=== PATIENT | female | born 1930 | race Caucasian/White ===

== ENCOUNTER 2018-06-26 06:33 | Observation (INO) | payer MEDICARE, BC ==
[~2018-06-26] VITALS: Wt 59.4 kg
[~2018-06-26 06:33] MED LIST: ARICEPT 5MG; ARICEPT10 MG PO; ASPIRIN 32325 MG/TAB PO; ASPIRIN E.C. 8181 MG PO; FOSAMAX 70MG TA70 MG PO; FOSAMAX5 MG; LIPITOR20 MG PO; MIRAPEX 0.0.125 MG/T PO; NORCO 325 MG-51 TAB PO; PLAVIX 75MG TAB75 MG PO; PRINIVIL10 MG PO; TYLENOL ARTHRI650 M1 PO; ZOCOR 20MG20 MG PO
[2018-06-26] MEDS ORDERED: ASPIRIN 81M81 MG/TA2 PO (06:46)
[2018-06-26 06:54] LABS: BASO % 0.2 % (0.0-2.0); EOS # 0.2 (0.0-0.7); GRAN # 4.5 (1.4-6.5); GRAN % 52.4 % (42.2-75.2); HEMATOCRIT 36.6 % (37.0-47.0); HEMOGLOBIN 11.5 g/dl (12.5-16.0); LYMPH # 3.1 (1.2-3.4); LYMPH % 36.4 % (20.0-51.0); MEAN CELL VOLUME 85 fl (80.0-100.0); MEAN CORPUSCULAR HEMOGLOBIN 27 pg (27.0-31.0); MEAN CORPUSCULAR HGB CONC 31 g/dl (33.0-37.0); MEAN PLATELET VOLUME 11.9 fl (7.4-10.4); MONO # 0.7 (0.1-0.6); MONO % 8.6 % (1.7-9.3); PLATELET COUNT 245 K/mm3 (130-400); RED BLOOD COUNT 4.32 M/mm3 (4.10-5.30); REDCELL DISTRIBUTION WIDTH-CV 15.2 % (11.5-14.5)
[2018-06-26 07:00] LABS: INR 1.1 (0.8-3.0); PROTHROMBIN TIME 12.7 SECONDS (9.7-12.8)
[2018-06-26 07:05] LABS: ALBUMIN 3.8 gm/dL (3.5-5.0); BILIRUBIN,TOTAL 0.4 mg/dL (0.0-1.0); CALCIUM 9.2 mg/dL (8.4-10.2); CREATININE, serum 0.82 mg/dL (0.52-1.25); POTASSIUM 3.4 mmol/L (3.4-5.0); TOTAL PROTEIN 6.7 gm/dL (6.4-8.2)
[2018-06-26 07:22] LABS: PROLACTIN 52.8 ng/mL (3.0-18.6)
[2018-06-26 08:42] LABS: COLLECTION METHOD CATHETER
[2018-06-26 08:49] LABS: MUCOUS Present /lpf; PH 6 (5-8); SQUAMOUS EPITHELIAL 0-2 /hpf; URINE APPEARANCE Clear; URINE BACTERIA None Seen /hpf; URINE BILIRUBIN Negative (NEGATIVE); URINE BLOOD Negative (NEGATIVE); URINE COLOR Yellow; URINE GLUCOSE Negative (NEGATIVE); URINE KETONE Negative (NEGATIVE); URINE LEUKOCYTE ESTERASE Negative (NEGATIVE); URINE NITRATE Negative (NEGATIVE); URINE PROTEIN(semi-quant) Negative (NEGATIVE); URINE RBC 0-2 /hpf; URINE UROBILINOGEN Negative (NEGATIVE)
--- NOTE | 2018-06-26 10:30 | NUR ---
arrived on unit per WC from emergency department, assisted into bed, son at bedside and admission assessment completed, patient is alert but is disoriented to time an day, is oriented to herself but unable to remember her birthday, fall risk intervention started
[2018-06-26] MEDS ORDERED: TYLENOL 500MG500 MG PO (10:52)
--- NOTE | 2018-06-26 11:21 | NUR ---
continues to try and get out of bed and bed alarm sounds, has now pulled out her INT to left antecubital, offered jello and banana and has agree to have this
[2018-06-26 11:22] VITALS: BP 147/63; PULSE 74; TEMP 98.3
--- NOTE | 2018-06-26 11:34 | NUR ---
spoke with Dr Muñoz and will wait until son returns to restart her INT
--- NOTE | 2018-06-26 12:05 | NUR ---
has been sitting up in bed and eating jello and banan but continues to try to get up frquently, son has returned and is now at bedside
--- NOTE | 2018-06-26 13:03 | NUR ---
son remains at bedside visiting with her, Dr Al in to see patient
--- NOTE | 2018-06-26 13:13 | NUR ---
appears to be sleeping, did have part of her jello and giselean, son remains at bedside
--- NOTE | 2018-06-26 14:28 | NUR ---
continues to appear to sleep, in bed with lights off, eyes closed, resp quiet and easy,
--- NOTE | 2018-06-26 14:33 | NUR ---
awake now and son out asking if he can having something to eat, instructed on ordering regular food, verbalizes understanding
--- NOTE | 2018-06-26 15:30 | NUR ---
sitting up in bed eating chicken breast and broccoli, tolerates well, son remains at bedside
--- NOTE | 2018-06-26 16:26 | NUR ---
bed alarm sounding, entered room and son assisting her out of bed and into bathroom, was incontinent of urine as she was ambulating into bathroom, will assist with incontinent care
[2018-06-26 16:59] VITALS: BP 150/82; PULSE 71; TEMP 97.9
--- NOTE | 2018-06-26 17:47 | NUR ---
awake resting in bed, son attempting to order her supper but she is very indecisisve, INT started
--- NOTE | 2018-06-26 18:46 | NUR ---
bedside shift report given to DUNG Schaeffer
--- NOTE | 2018-06-26 20:05 | NUR ---
Pt resting in bed. Son not present at this time. Pt confused/ disoriented and has removed all telemetry leads and the box. Pt reoriented. Neuro check otherwise WNL. No deficits noted. Respirations even and unlabored. Lungs clear. BS+. Denies pain. Bed alarm armed. Seizure precautions. Will continue to monitor.
[2018-06-26 20:36] VITALS: BP 138/51; PULSE 78; TEMP 98.2
[2018-06-26 23:25] VITALS: BP 133/51; PULSE 80; TEMP 98.7
[2018-06-27 04:12] VITALS: BP 147/66; PULSE 74; TEMP 97.5
--- NOTE | 2018-06-27 06:37 | NUR ---
Pt at baseline level of confusion this AM. No other neurological deficits noted. No seizure activity through the night.
[2018-06-27 06:54] LABS: BASO % 0.3 % (0.0-2.0); EOS # 0.1 (0.0-0.7); EOS % 1.8 % (0-4.0); GRAN # 3.7 (1.4-6.5); HEMOGLOBIN 10.7 g/dl (12.5-16.0); LYMPH # 2.2 (1.2-3.4); LYMPH % 32.7 % (20.0-51.0); MEAN CELL VOLUME 85 fl (80.0-100.0); MEAN CORPUSCULAR HEMOGLOBIN 26 pg (27.0-31.0); MEAN CORPUSCULAR HGB CONC 31 g/dl (33.0-37.0); MEAN PLATELET VOLUME 12.1 fl (7.4-10.4); MONO # 0.6 (0.1-0.6); PLATELET COUNT 222 K/mm3 (130-400); RED BLOOD COUNT 4.11 M/mm3 (4.10-5.30); REDCELL DISTRIBUTION WIDTH-CV 15.3 % (11.5-14.5)
[2018-06-27 07:01] LABS: HEMATOCRIT 34.8 % (37.0-47.0)
[2018-06-27 07:10] LABS: CALCIUM 8.9 mg/dL (8.4-10.2); CREATININE, serum 0.73 mg/dL (0.52-1.25); MAGNESIUM 1.8 mg/dL (1.6-2.3); PHOSPHOROUS 3.4 mg/dL (2.5-4.5); POTASSIUM 3.6 mmol/L (3.4-5.0)
[2018-06-27 07:36] VITALS: BP 131/79; PULSE 65; TEMP 98.6
--- NOTE | 2018-06-27 09:30 | NUR ---
Patient sitting up in chair visiting with DUNG Gaona. Chair alarm placed under patient for patients saftey as son is gone at this time. Patient is alert and oriented to self and date of . Denies any pain/discomfort. Skin w/d. Color pale pink. Lungs CTA with resp even/unlabored. HR strong/regular. Abd soft with bowel sound x 4 quads. PPP. No pedal edema noted. Patient very confused and wants to go home. She is not understanding of why she has to stay here.
--- NOTE | 2018-06-27 10:30 | NUR ---
Patient has been refusing to leave telemtry on this AM. With encouragement she will let this nurse place but then takes it back off. him tech and made aware patients refusal to leave telemetry on.
[2018-06-27 11:05] VITALS: BP 152/63; PULSE 67; TEMP 97.8
--- NOTE | 2018-06-27 13:45 | NUR ---
Patient's son at desk inquiring about time of patients procedure. Rosie, Receiving Manager called to check on time. Son made aware of time of procedure to be at 1500
--- NOTE | 2018-06-27 14:30 | NUR ---
Patient's son attempting to walk mother out to the elevator with just her gown on and IV still intact at this time. When stopped; son notable upset and states that he is taking his mother to [facility] and wants to know why she had not had EEG yet at this time. Explained to son that the tech had just called and will be here soon to perform test on the patient. He verbalizes they better be or that they will be leaving.
--- NOTE | 2018-06-27 14:40 | NUR ---
Saira, RT here to the floor to perform EEG on patient at this time.
[2018-06-27] MEDS ORDERED: KEPPRA250 MG PO (15:25)
[2018-06-27 15:34] VITALS: BP 140/48; PULSE 64; TEMP 97.9
--- NOTE | 2018-06-27 15:54 | NUR ---
YAS met with patient and patient's son about discharge plans. Patient will be discharging today. Patient's PCP is Dr August and she denies issues with filling prescriptions. Patient uses a walker for ambulation when needed but no other DME is reported. Patient also does not use any home health services. Patient does not have DPOA and is unable to sign one at this time. No discharge needs.
--- NOTE | 2018-06-27 17:02 | NUR ---
Patient discharge to home at this time with son. Review of discharge instructions given to son. Verbalizes understanding. New script sent to [facility] per pharmacy preference. INT removed from right forearm with cannula intact. Patient dressed by son. Discharged to home at this time
== END 2018-06-27 16:50 | disposition home or self-care (01) ==
LOC: COL.ER 06:33 → MEDICAL 08:01
PROVIDERS: Emergency Medicine; ADMIT Hospitalist
DX: R56.9 Unspecified convulsions (principal); I10 Essential (primary) hypertension; R73.9 Hyperglycemia, unspecified; G30.9 Alzheimer's disease, unspecified; F02.80 Dementia in other diseases classified elsewhere, unspecified severity, without behavioral disturbance, psychotic disturbance, mood disturbance, and anxiety; E78.5 Hyperlipidemia, unspecified; G25.81 Restless legs syndrome; Z86.73 Personal history of transient ischemic attack (TIA), and cerebral infarction without residual deficits; Z79.02 Long term (current) use of antithrombotics/antiplatelets; Z79.82 Long term (current) use of aspirin; M81.0 Age-related osteoporosis without current pathological fracture; R15.9 Full incontinence of feces; R32 Unspecified urinary incontinence; M19.90 Unspecified osteoarthritis, unspecified site
CPT/HCPCS: G0378; J1644; J1953; J7030

== ENCOUNTER 2018-08-21 14:07 | Outpatient (CLI) | payer MEDICARE, BC ==
[~2018-08-21] VITALS: Ht 162.6 cm; Wt 60.5 kg
[~2018-08-21 14:07] MED LIST changes: +ASPIRIN 81M81 MG/TA2 PO; +KEPPRA250 MG PO; +TYLENOL 500MG500 MG PO
[2018-08-21] MEDS ORDERED: PRINIVIL10 MG PO (15:54)
[2018-08-21] MEDS ORDERED: PLAVIX 75MG TAB75 MG PO (15:55)
[2018-08-21] MEDS ORDERED: KEPPRA250 MG PO (15:55)
[2018-08-21 16:27] VITALS: BP 136/62; PULSE 62; TEMP 97.4
== END 2018-08-21 16:00 | disposition home or self-care (01) ==
LOC: EUO 14:07
DX: M81.0 Age-related osteoporosis without current pathological fracture (principal); Z79.899 Other long term (current) drug therapy
CPT/HCPCS: J3489

== ENCOUNTER 2019-08-29 10:57 | Outpatient (CLI) | payer MEDICARE, BC ==
[~2019-08-29] VITALS: Ht 160 cm; Wt 54.0 kg
[~2019-08-29 10:57] MED LIST changes: +B-121000 MCG PO
[2019-08-29 11:21] VITALS: BP 116/67; PULSE 94; TEMP 98.5
== END 2019-08-29 11:51 | disposition home or self-care (01) ==
LOC: EUO 10:57
DX: M81.0 Age-related osteoporosis without current pathological fracture (principal)
CPT/HCPCS: J0897

== ENCOUNTER 2020-03-09 16:24 | Outpatient (CLI) | payer MEDICARE, BC ==
[~2020-03-09] VITALS: Ht 160 cm; Wt 54.5 kg
[2020-03-09] MEDS ORDERED: VITAMIN B12 781 TAB PO (16:34)
[2020-03-09 16:39] VITALS: BP 151/60; PULSE 125; TEMP 97.4
== END 2020-03-09 16:50 | disposition home or self-care (01) ==
LOC: EUO 16:24
DX: M81.0 Age-related osteoporosis without current pathological fracture (principal)
CPT/HCPCS: J0897

== ENCOUNTER 2020-03-10 12:16 | Inpatient (IN) | payer MEDICARE, BC ==
[~2020-03-10] VITALS: Wt 52.1 kg
[~2020-03-10 12:16] MED LIST changes: +VITAMIN B12 781 TAB PO
[2020-03-10 12:54] LABS: BASO % 0.2 % (0.0-2.0); EOS # 0.2 (0.0-0.7); GRAN # 7.9 (1.4-6.5); GRAN % 66.4 % (42.2-75.2); HEMOGLOBIN 10.1 g/dl (12.5-16.0); LYMPH # 2.3 (1.2-3.4); MEAN CELL VOLUME 83 fl (80.0-100.0); MEAN CORPUSCULAR HEMOGLOBIN 25 pg (27.0-31.0); MEAN CORPUSCULAR HGB CONC 31 g/dl (33.0-37.0); MEAN PLATELET VOLUME 11.4 fl (7.4-10.4); MONO # 1.4 (0.1-0.6); PLATELET COUNT 383 K/mm3 (130-400); RED BLOOD COUNT 3.98 M/mm3 (4.10-5.30); REDCELL DISTRIBUTION WIDTH-CV 13.9 % (11.5-14.5)
[2020-03-10 12:58] LABS: HEMATOCRIT 32.9 % (37.0-47.0)
[2020-03-10 13:02] LABS: ARTERIAL BLD GAS O2 SATURATION 96.1 % (92-100); ARTERIAL BLOOD GAS HCO3 26.8 meq/L (22-26); ARTERIAL BLOOD GAS PO2 79.5 mmHg (80-100); ARTERIAL BLOOD GAS pH 7.47 (7.35-7.45)
[2020-03-10 13:06] LABS: ALBUMIN 3.5 gm/dL (3.5-5.0); BILIRUBIN,TOTAL 0.4 mg/dL (0.0-1.0); CALCIUM 9.4 mg/dL (8.4-10.2); CREATININE, serum 0.77 (0.52-1.25); TOTAL PROTEIN 6.8 gm/dL (6.4-8.2)
[2020-03-10 13:34] LABS: COLLECTION METHOD CLEAN CATCH
[2020-03-10 14:14] LABS: MUCOUS Present /lpf; PH 6 (5-8); URINE APPEARANCE Hazy; URINE BACTERIA Occasional /hpf; URINE BILIRUBIN Negative (NEGATIVE); URINE BLOOD 1+ (NEGATIVE); URINE COLOR Yellow; URINE GLUCOSE Negative (NEGATIVE); URINE KETONE Negative (NEGATIVE); URINE LEUKOCYTE ESTERASE 2+ (NEGATIVE); URINE NITRATE Negative (NEGATIVE); URINE PROTEIN(semi-quant) Negative (NEGATIVE); URINE UROBILINOGEN Negative (NEGATIVE)
--- NOTE | 2020-03-10 16:50 | NUR ---
PT ARRIVED TO FLOOR, SON TROY IN ROOM ABLE TO GO OVER 5PAGE AND MED REC WITH HIM. UNABLE TO OBTAIN SUICIDE ASSESSMENT PT IS NOT RESPONSIVE ALL THE TIME. PT WILL ANSWER WITH NODS AND OCCASIONAL YES OR NO ANSWERS. PT HAS MULTIPLE WOUNDS TO BOTTOM AND SON REPORTS SHE DOES NOT TURN ON HER OWN. PT HIGH FALL RISK ACCORDING TO SCALE, BUT BED BOUND, DOES NOT GET UP. PT HAS BEEN SLEEPING MORE THAN USUAL, SON HAS SEEN MENTAL DECLINE OVER PAST YEAR. PT LIVES WITH SON AT HOME. SON REPORTS BEING OPEN TO HOME HEALTH. FLUIDS HUNG, MEDS GIVEN. PT TAKES UP TO 4 PILLS AT A TIME WITH WATER.
[2020-03-10 19:12] VITALS: BP 121/54; PULSE 112; TEMP 99.1
[2020-03-10 19:13] VITALS: BP 121/54; PULSE 112; TEMP 99.1
--- NOTE | 2020-03-10 20:45 | NUR ---
Received report from DUNG Danielle. Pt sleeping upon entry, wakes to voice and touch. Pt able to occasionally respond to voice and commands. Unable to state last name, , date and situation. NAD. Meds administered one at a time with apple sauce. Pt drinks water with straw on command. IVF to RAC, intact, dressing CDI. Pt incontinent of BB, pt had medium soft brown BM, pt cleaned and changed. Skin abrasion/ulcer observed to left buttocks, no drainage, mepilex placed, arpan area reddended, barrier cream applied. Pt repositioned in bed. Rt heel with scant drainage and deep tissue injury, heel foam applied. Left heel with deep tissue injury. Heel pillows applied to bilateral heels. Legs elevated on pillow. Will monitor. Bed alarm set.
[2020-03-10 23:58] VITALS: BP 109/54; PULSE 75; TEMP 98.7
[2020-03-11] VITALS (7 sets, daily range): BP systolic 98–157; BP diastolic 38–75; PULSE 79–97; TEMP 97.9–98.6
--- NOTE | 2020-03-11 05:51 | NUR ---
Pt slept through the night. Pt cleaned and changed, barrier cream applied repositioned in bed. Heel pillows placed to bilateral heels.
--- NOTE | 2020-03-11 06:41 | NUR ---
Report given to DUNG Danielle.
--- NOTE | 2020-03-11 08:50 | NUR ---
PUREWICC PLACED FOR PT INCONTINENCE. BRIEF AND TROY CHANGED, PERICARE PROVIDED, PT READJUSTED IN BED, PT COULD ANSWER YES OR NO QUESTIONS, PT ATE VERY LITTLE OF BREAKFAST, PT DOES NOT MOVE BLE, VERY STIFF AND HARD TO MOVE. L MANAGEMENT SUPERVISOR WEAKER THAN R MANAGEMENT SUPERVISOR. PT FLUIDS TURNED DOWN. PT DID NOT KNOW WHERE SHE WAS, OPENS EYES TO SPEECH, NO OTHER NEEDS AT THIS TIME. SON IN ROOM VISITING.
--- NOTE | 2020-03-11 10:08 | NUR ---
YAS met with the patient and her son, Elpidio (ph#[phone]), to discuss discharge plan. The patient was resting during intake and has dementia at baseline. The patient lives in [place] with Elpidio. Elpidio reports that the patient needs assistance with ADLs and bathing. He states that he helps her with her ADLs and they do sponge baths. The patient has a cane, walker, and wheelchair; but Elpidio states that the patient is wheelchair bound. The patient's PCP is Dr. Nella August and she receives her medications from [facility]. Elpidio reports no difficulties obtaining her meds. Elpidio states that the patient does not have a DPOA-HC. The patient is not . Elpidio states that the patient has four children: Him, Ashley Canales ([place]), Parker Hamida ([place]), and Loretta. Loretta does not live around here. Elpidio states that him and his siblings all keep in contact with one another. Elpidio reports that the plan is for the patient to return back home with him upon discharge. YAS discussed home argelia services and their benefits. Elpidio reports that they are not interested in home health at this time and he does not feel like they need it. SW to continue to follow.
--- NOTE | 2020-03-11 10:11 | NUR ---
Initial visit; Patient appeared unable to respond. Meaghan's son was receptive to [employer] keeping both him and his mother in [employer]a prayers.
--- NOTE | 2020-03-11 12:04 | NUR ---
CARLO SA SETHI NOTIFIED OF LOW BP'S.
[2020-03-11] MEDS ORDERED: ZOHYDRO ER10 MG PO ×2 (12:19)
--- NOTE | 2020-03-11 13:04 | NUR ---
PT REPORTS FEELING LIGHT HEADED BUT PRESSURE CAME UP TO 118/60.
--- NOTE | 2020-03-11 17:17 | NUR ---
PT RESPONSIVE TO NAME, ALERT TO PERSON BUT NOT PLACE OR TIME. PT WOULD NOT RAISE HER ARMS OR MOVE HER LEGS A COMMAND, BUT WOULD MOVE THEM INDEPENDENTLY, PT DID NOT EAT LUNCH, PUREWICC DRAINING WELL, NEURO CHECKS STABLE, NO OTHER NEEDS.
--- NOTE | 2020-03-11 19:17 | NUR ---
Bedside shift report received from DUNG Danielle. Pt sitting up in bed with eyes closed, states she is comfortable. Denies any pain at this time. Will monitor pt.
--- NOTE | 2020-03-11 21:32 | NUR ---
Pt resting in bed with eyes closed. Wakes to voice. States no pain. Meds adminsitered one at a time with applesauce. IVF infusing to RAC, intact, dressing to IV site changed and wrapped with coban. Purewick intact connected to suction. Heel pillows in place to bilateral heels. BLE elevated, pillow placed between knees. made pt comfortable in bed. Will monitor. Bed alarm set. Call light within reach.
[2020-03-12] VITALS (7 sets, daily range): BP systolic 120–158; BP diastolic 32–72; PULSE 82–100; TEMP 98.1–98.9
--- NOTE | 2020-03-12 04:47 | NUR ---
Purewick changed. pt cleaned and changed, repositioned in bed. made pt comfortable. bed alarm set.
--- NOTE | 2020-03-12 06:45 | NUR ---
Pt assessment completed, pt is alert and oriented x3. Skin issues to include a scab on the right hip, excoriation along the right buttock, and deep tissue injury on each heel. The pt's right heel is oozing. Pt did drink some water, and has no other complaints. No further concerns at this time.
[2020-03-12 07:11] LABS: BASO % 0.3 % (0.0-2.0); EOS # 0.2 (0.0-0.7); GRAN # 4.7 (1.4-6.5); GRAN % 63.2 % (42.2-75.2); LYMPH # 1.7 (1.2-3.4); LYMPH % 23.1 % (20.0-51.0); MEAN CELL VOLUME 85 fl (80.0-100.0); MEAN CORPUSCULAR HGB CONC 30 g/dl (33.0-37.0); MEAN PLATELET VOLUME 11.4 fl (7.4-10.4); MONO # 0.7 (0.1-0.6); MONO % 9.9 % (1.7-9.3); PLATELET COUNT 336 K/mm3 (130-400); RED BLOOD COUNT 3.53 M/mm3 (4.10-5.30)
[2020-03-12 07:15] LABS: HEMATOCRIT 29.9 % (37.0-47.0); HEMOGLOBIN 9.1 g/dl (12.5-16.0); MEAN CORPUSCULAR HEMOGLOBIN 26 pg (27.0-31.0)
--- NOTE | 2020-03-12 07:24 | NUR ---
Report given to DUNG Garcia.
[2020-03-12 07:27] LABS: CALCIUM 8.2 mg/dL (8.4-10.2); CREATININE, serum 0.66 (0.52-1.25); POTASSIUM 3.3 mmol/L (3.4-5.0)
--- NOTE | 2020-03-12 13:30 | NUR ---
Primary nurse was assisted with [id number] patient care by [employer] student Toshia Arboleda and [employer] instructor Radha Godoy RN-BC.
--- NOTE | 2020-03-12 18:27 | NUR ---
Pt had uneventful day. Still has purewick external catheter in place. Pt has a significant amount of ulcerations on her coccyx and left buttock. Turned patient q2h today. Heels in heel protectors and right heel has spongy heel protector for oozing fluids. No further concerns at this time.
--- NOTE | 2020-03-12 18:53 | NUR ---
Report given to DUNG Marmolejo.
--- NOTE | 2020-03-13 01:09 | NUR ---
Received report from DUNG Garcia. Alert to self, able to state her first and maiden name, unable to state her birthday, current date and place, pt states she is in [facility]. NAD. Denies any pain or discomfort at this time. Made pt comfortable in bed. Heel pillows in place bilaterally with heel foam protector to right heel, with scant drainage. Purewick intact connected to suction. Mepilex intact to rt buttocks. IVF infusing to RAC, intact, dressing CDI. Meds administered whole with applesauce without issue. Water provided. Bed alarm set. Will monitor.
[2020-03-13 03:57] VITALS: BP 147/65; PULSE 100; TEMP 98.4
--- NOTE | 2020-03-13 04:15 | NUR ---
had BM, pt cleaned, changed and repositioned. Mepilex in place to rt buttcocks. Purewick changed connected to suction. Voices no needs at this time. NAD.
[2020-03-13 06:55] VITALS: BP 145/73; PULSE 85; TEMP 98.1
[2020-03-13 07:16] LABS: BASO % 0.1 % (0.0-2.0); EOS # 0.2 (0.0-0.7); GRAN # 4.9 (1.4-6.5); GRAN % 64.4 % (42.2-75.2); LYMPH # 1.7 (1.2-3.4); LYMPH % 21.9 % (20.0-51.0); MEAN CELL VOLUME 82 fl (80.0-100.0); MEAN CORPUSCULAR HGB CONC 31 g/dl (33.0-37.0); MEAN PLATELET VOLUME 11.3 fl (7.4-10.4); MONO # 0.8 (0.1-0.6); MONO % 10.2 % (1.7-9.3); PLATELET COUNT 356 K/mm3 (130-400); RED BLOOD COUNT 3.56 M/mm3 (4.10-5.30); REDCELL DISTRIBUTION WIDTH-CV 13.7 % (11.5-14.5)
[2020-03-13 07:17] LABS: HEMATOCRIT 29.3 % (37.0-47.0); HEMOGLOBIN 9.2 g/dl (12.5-16.0); MEAN CORPUSCULAR HEMOGLOBIN 26 pg (27.0-31.0)
[2020-03-13 07:23] LABS: CALCIUM 8.3 mg/dL (8.4-10.2); CREATININE, serum 0.63 (0.52-1.25); POTASSIUM 3.6 mmol/L (3.4-5.0)
--- NOTE | 2020-03-13 07:40 | NUR ---
REPORT RCVD FROM DUNG HAMPTON.
--- NOTE | 2020-03-13 10:47 | NUR ---
YAS attended clinical rounds. The hospitalist addressed the patient's heel/decubitus wounds with the patient's son, Elpidio, and informed him how it is important to rotate and move the patient frequently. The hospitalist discussed home health services and how an RN can assist with the wound and education. The patient's son, Elpidio, reports that the patient has dementia and gets confused and scared when someone else is in their home. She thinks that she is not at her home when someone that she is not familiar with is there. Elpidio declined home health. YAS then followed up with Elpidio and reviewed home health services again. Elpidio confirms that he does not want home health at this time. YAS informed Elpidio about how the patient's PCP can get this set up for them, if he were to change his mind. Elpidio verbalized understanding. YAS contacted and updated DUNG [employer] professor, with the patient's PCP. The patient is to discharge back home with her son today, 03/13. YAS presented and read the IM form outloud to the patient's son, Elpidio. Elpidio verbalized understanding and gave YAS approval to sign the form on his behalf. YAS provided him with a copy. YAS made an APS report, due to concerns. APS intake ID#[id number].
--- NOTE | 2020-03-13 12:52 | NUR ---
PT HAS DISCHARGED WITH SON TO HOME.
--- NOTE | 2020-03-13 14:18 | NUR ---
Primary nurse was assisted with [phone] patient care by [employer] student Susan Guerra and [employer] instructor Radha Hatfield RN-.
== END 2020-03-13 12:53 | disposition home or self-care (01) | DRG 871 ==
LOC: COL.ER 12:16 → MEDICAL 14:49
PROVIDERS: Family Medicine; Physician Assistant; ADMIT Internal Medicine
DX: A41.9 Sepsis, unspecified organism (principal); L89.153 Pressure ulcer of sacral region, stage 3; G93.41 Metabolic encephalopathy; N39.0 Urinary tract infection, site not specified; E87.1 Hypo-osmolality and hyponatremia; F03.90 Unspecified dementia, unspecified severity, without behavioral disturbance, psychotic disturbance, mood disturbance, and anxiety; L89.629 Pressure ulcer of left heel, unspecified stage; L89.619 Pressure ulcer of right heel, unspecified stage; G40.909 Epilepsy, unspecified, not intractable, without status epilepticus; I10 Essential (primary) hypertension; M81.0 Age-related osteoporosis without current pathological fracture; M17.0 Bilateral primary osteoarthritis of knee; E86.0 Dehydration; E78.5 Hyperlipidemia, unspecified; R53.81 Other malaise; Z79.82 Long term (current) use of aspirin; Z79.1 Long term (current) use of non-steroidal anti-inflammatories (NSAID); Z99.3 Dependence on wheelchair; Z96.651 Presence of right artificial knee joint; Z86.73 Personal history of transient ischemic attack (TIA), and cerebral infarction without residual deficits
CPT/HCPCS: 99222-AI; 99231-AI; 99233-AI; J0696; J1650; J7030; J7120